=== PATIENT | female | born 1940 | race Caucasian/White ===

== ENCOUNTER → 2018-06-23 10:27 | Outpatient (CLI) | payer MEDICARE, OTHER, SELFPAY ==
[2018-06-23 12:33] LABS: Add Manual Diff / Slide Review NO; Basophils Percent Auto 0.1 % (0-2); Hematocrit 39.8 % (36-46); Hemoglobin 13.7 g/dL (12.0-16.0); Lymphocytes Percent Auto 33.3 % (25-40); Mean Corpuscular HGB Conc 34.4 % (30-36); Monocytes Percent Auto 6.7 % (3-14); Neutrophils Absolute Auto 3900 /uL (3000-5900); Neutrophils Percent Auto 59.9 % (50-75); Platelet Count 193 X10^3/uL (150-400); Red Blood Cell Count 4.28 X10^6/uL (4.0-5.2); White Blood Cell Count 6.5 X10^3/uL (4.5-11.0)
[2018-06-23 13:08] LABS: Alanine Aminotransferase 46 IU/L (9-52); Albumin 4.3 g/dL (3.5-5.0); Albumin Globulin Ratio 1.9 (1.0-2.8); Alkaline Phosphatase 60 U/L (38-126); Aspartate Aminotransferase 38 IU/L (14-36); BUN Creatinine Ratio 28.8 (6-22); Bilirubin Total 0.6 mg/dL (0.2-1.3); Blood Urea Nitrogen 23 mg/dL (7-17); Calcium 10.1 mg/dL (8.4-10.2); Carbon Dioxide 35 mmol/L (22-32); Chloride 96 mmol/L (98-107); Cholesterol 223 mg/dL (140-199); Estimated Glomerular Filt Rate > 60.0 mL/min (>60); Globulin 2.3 g/dL (1.7-4.1); Glucose 87 mg/dL (80-110); HDL Cholesterol 78 mg/dL (40-60); HEMOLYSIS < 15 (0-50); LDL Cholesterol Calculated 119 mg/dL (<100); Potassium 4.5 mmol/L (3.4-5.1); Sodium 139 mmol/L (137-145); Total Protein 6.6 g/dL (6.3-8.2); Triglycerides 132 mg/dL (35-150)
[2018-06-23 13:35] LABS: Thyroid Stimulating Hormone 0.02 uIU/mL (0.47-4.68)
== END ==
PROVIDERS: PCP Family Medicine; Visit Provider Family Medicine
DX: E78.5 Hyperlipidemia, unspecified (principal); I20.1 Angina pectoris with documented spasm; R68.89 Other general symptoms and signs; R60.9 Edema, unspecified; Z00.00 Encounter for general adult medical examination without abnormal findings
CPT/HCPCS: 36415; 80053; 80061; 84443; 85025

== ENCOUNTER → 2018-08-09 12:16 | Outpatient (CLI) | payer MEDICARE, OTHER, SELFPAY ==
--- NOTE | 2018-08-09 | DI.MG.S_ITS ---
BILATERAL DIGITAL SCREENING MAMMOGRAM 3D/2D WITH CAD: 08/09/2018 CLINICAL: Routine screening. Family history of breast cancer. Comparison is made to exams dated: 12/30/2012 mammogram and 02/03/2011 mammogram - [facility]. The tissue of both breasts is predominantly fatty. Current study was also evaluated with a Computer Aided Detection (CAD) system. There is a new asymmetry in the right breast posterior depth upper region seen on the mediolateral oblique view only. No other significant masses, calcifications, or other findings are seen in either breast. IMPRESSION: INCOMPLETE: NEEDS ADDITIONAL IMAGING EVALUATION The new asymmetry in the right breast is indeterminate. Additional views with possible ultrasound are recommended. This exam was interpreted at Station ID: [id number]. NOTE: For mammograms, a report in lay terms will be sent to the patient. Approximately 15% of breast malignancies will not be visualized mammographically. In the management of a palpable breast mass, a negative mammogram must not discourage biopsy of a clinically suspicious lesion. Electronically Signed By: Power Diaz M.D. ecl/:08/09/2018 23:16:44 letter sent: Additional Imaging Needed ACR BI-RADS Category 0: Incomplete 3340F
== END ==
PROVIDERS: PCP Family Medicine; Visit Provider Family Medicine
DX: Z12.31 Encounter for screening mammogram for malignant neoplasm of breast (principal); M85.851 Other specified disorders of bone density and structure, right thigh; Z80.3 Family history of malignant neoplasm of breast; Z78.0 Asymptomatic menopausal state
CPT/HCPCS: 77063; 77067; 77080

== ENCOUNTER → 2018-09-01 14:25 | Outpatient (CLI) | payer MEDICARE, OTHER, SELFPAY ==
--- NOTE | 2018-09-01 | DI.MG.S_ITS ---
UNILATERAL RIGHT DIGITAL DIAGNOSTIC MAMMOGRAM 3D/2D WITH ADDITIONAL VIEWS: 09/01/2018 CLINICAL: Additional evaluation requested from prior study. Comparison is made to exams dated: 08/09/2018 mammogram, 12/30/2012 mammogram, and 02/03/2011 mammogram - [facility]. There are scattered fibroglandular elements in right breast. There is 0.8 cm oval equal density asymmetry with an indistinct margin in the right breast at 9 o'clock posterior depth. No other significant masses or calcifications are seen in the breast. IMPRESSION: INCOMPLETE: NEEDS ADDITIONAL IMAGING EVALUATION The 0.8 cm oval equal density asymmetry in the right breast is indeterminate. An ultrasound is recommended. This exam was interpreted at Station ID: [id number]. NOTE: For mammograms, a report in lay terms will be sent to the patient. Approximately 15% of breast malignancies will not be visualized mammographically. In the management of a palpable breast mass, a negative mammogram must not discourage biopsy of a clinically suspicious lesion. Electronically Signed By: Carlos scott/yesika:09/01/2018 15:40:15 letter sent: Need Ultrasound ACR BI-RADS Category 0: Incomplete 3340F
--- NOTE | 2018-09-01 | DI.US.S_ITS ---
LIMITED ULTRASOUND OF RIGHT BREAST: 09/01/2018 CLINICAL: Patient returns for additional imaging over a suspected mass in the right breast. Comparison is made to exams dated: 09/01/2018 mammogram, 08/09/2018 mammogram, and 12/30/2012 mammogram - [facility]. Color flow and real-time ultrasound of the right breast 9 o'clock region were performed on the areas of interest. There is a benign 0.5 cm x 0.4 cm x 0.8 cm oval normal lymph node with a circumscribed margin in the right breast at 9 o'clock. This oval normal lymph node is of mixed echogenicity with fatty hilum. This correlates with mammography findings. Color flow imaging demonstrates that there is no increase in vascularity. No abnormalities were seen sonographically in the right breast. IMPRESSION: BENIGN There is no sonographic evidence of malignancy. The 0.5 cm x 0.4 cm x 0.8 cm oval normal lymph node in the right breast is consistent with a lymph node and is benign. A 1 year screening mammogram is recommended.(09/02/2019) This exam was interpreted at Station ID: [id number]. Electronically Signed By: Carlos scott/yesika:09/01/2018 16:50:27 letter sent: Normal Exam Ultrasound BI-RADS: 2 Benign
== END ==
PROVIDERS: PCP Family Medicine; Visit Provider Family Medicine
DX: R92.8 Other abnormal and inconclusive findings on diagnostic imaging of breast (principal)
CPT/HCPCS: 76642; 77065; G0279

== ENCOUNTER → 2020-05-08 15:31 | Outpatient (CLI) | payer MEDICARE, OTHER, SELFPAY ==
--- NOTE | 2020-05-08 | DI.MRI.S_ITS ---
PROCEDURE: MR LUMBAR SPINE WO CON INDICATIONS: BACKPAIN TECHNIQUE: Noncontrast sagittal T1 spin echo and T2 fast echo, sagittal STIR, axial T1 and T2 fast spin echo through the lumbar spine. In cases with scoliosis, additional coronal T2 fast spin echo may be performed. COMPARISON: None. FINDINGS: Image quality: Diagnostic, with note made of motion artifact. Alignment and Curvature: S-shaped scoliotic curvature is seen. There is minimal to mild retrolisthesis seen at L2-L3 and L3-L4. Bone Marrow: Marrow is of normal overall signal. No acute vertebral body compression fractures. Spinal Cord: Conus medullaris terminates at the L1 level. Visualized cord demonstrates normal signal and size. Paraspinous Soft Tissues: No paravertebral masses. T12-L1: No significant abnormality is seen. L1-L2: The disc height is well-preserved. Loss of disc signal is seen at this level. There is a focal annular fissure seen posteriorly. Mild to moderate disc bulge is seen. Mild bilateral neural foraminal narrowing is seen. Mild to moderate central canal narrowing is seen. L2-L3: The disc height is well-preserved. Loss of disc signal is seen at this level. Moderate disc bulge is seen. There is a focal annular fissure seen posteriorly. Mild facet joint hypertrophy is seen. There is a right-sided perineural cyst seen. At least moderate bilateral neural foraminal narrowing can be seen. Moderate central canal narrowing is seen. L3-L4: Moderate loss of disc height is seen. Loss of disc signal is seen. Moderate disc bulge is seen, which is eccentric to the right. There is moderate right-sided and mild left neural foraminal narrowing seen. On the left, there is a perineural cyst seen. There is at least moderate bilateral neural foraminal narrowing seen, right worse than left. There is a degree of compression seen upon the exiting nerve roots. Moderate central canal narrowing is seen. L4-L5: Severe loss of disc height is seen. There is a degree of vertebral body fusion seen on the right side. Moderate disc bulge is seen. At least moderate facet hypertrophy is seen at this level. There is mild to moderate right-sided and at least moderate left-sided neural foraminal narrowing seen. Mild to moderate central canal narrowing is seen. L5-S1: Mild to moderate loss of disc height is seen on the left side. Mild to moderate disc bulge is seen. Moderate facet joint hypertrophy is seen. There is mild right-sided and moderate to severe left-sided neural foraminal narrowing seen. There is compression seen on the exiting left L5 nerve root. Mild to moderate central canal narrowing is seen. 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 IMPRESSION: S-shaped scoliosis and multiple levels of lumbar spine degenerative changes are seen. There is a degree of vertebral body fusion seen of the right at the L4-L5 level. Moderate to severe left-sided neural foraminal narrowing seen at L5-S1, with associated exiting nerve root compression. Dictated by: Fabian Franklin M.D. on 05/08/2020 at 16:24 Approved by: Fabian Franklin M.D. on 05/08/2020 at 16:31
--- NOTE | 2020-05-08 | DI.MRI.S_ITS ---
PROCEDURE: MR PELVIS WO CON INDICATIONS: Back pain, pelvic pain TECHNIQUE: Noncontrast axial and coronal T1 spin echo and STIR through the lumbosacral plexus region. Optional contrast may be given, followed by axial and coronal T1 spin echo with fat saturation through the sacral plexus. COMPARISON: [facility], MR, MR LUMBAR SPINE WO CON, 05/08/2020, 15:43. FINDINGS: Image quality: Excellent. Lumbosacral plexus: Superior to the piriformis muscles, the pre-plexal structures appear normal, including the lumbosacral trunk and S1 root. Just anterior to the piriformis muscles, the sacral plexus proper demonstrates normal morphology (lumbosacral trunk, S1 to S3 nerve roots). Inferior to the piriformis muscles, the sciatic nerves appear normal. Soft tissues: The piriformis muscles appear symmetric in size. No presacral masses. Rectum appears normal in caliber and wall thickness. No pathologic free pelvic fluid. No visualized adenopathy by size criteria. The L4-L5 right sided intervertebral disc space area has an unusually prominent degree of elevated fluid signal within, and tracking into the immediate adjacent paraspinous musculature. This tracking extends over several centimeters inferiorly, and terminates without an associated fluid collection. This also can be seen on MR LS spine imaging same day.. Bones: Marrow is normal in overall signal. IMPRESSION: 1. Within the pelvis a mass is not found and no impingement on the sacral plexus is identified. 2. At the right aspect of the L4-L5 intervertebral disc space and within the peripheral margin of the L4 and L5 marrow space there is relatively prominent elevated fluid signal, which tracks into the immediate adjacent right-sided paravertebral musculature inferiorly for several centimeters. This may simply reflect sequela of prominent inflammatory phase of degenerative disc disease at that site but asymmetric right-sided discitis/early osteomyelitis should also be considered. Please correlate clinically and consider obtaining sedimentation rate and other laboratory analysis for this patient. Dictated by: Erich Espino M.D. on 05/09/2020 at 9:13 Approved by: Erich Espino M.D. on 05/09/2020 at 9:27
== END ==
PROVIDERS: PCP Student in an Organized Health Care Education/Training Program; Referring Provider Student in an Organized Health Care Education/Training Program; Visit Provider Student in an Organized Health Care Education/Training Program
DX: M54.5 Low back pain (principal); M43.26 Fusion of spine, lumbar region; M47.816 Spondylosis without myelopathy or radiculopathy, lumbar region; M47.817 Spondylosis without myelopathy or radiculopathy, lumbosacral region; M48.07 Spinal stenosis, lumbosacral region; M48.061 Spinal stenosis, lumbar region without neurogenic claudication; M41.86 Other forms of scoliosis, lumbar region
CPT/HCPCS: 72148; 72195

== ENCOUNTER → 2020-05-13 14:04 | Outpatient (CLI) | payer MEDICARE, OTHER, SELFPAY ==
[2020-05-13 15:53] LABS: Add Manual Diff / Slide Review NO; Basophils Absolute Auto 0 /uL (0-100); Eosinophils Absolute Auto 0 /uL (0-450); Hematocrit 38.5 % (36-46); Hemoglobin 13.3 g/dL (12.0-16.0); Lymphocytes Absolute Auto 1800 /uL (1100-4500); Lymphocytes Percent Auto 34.9 % (25-40); Mean Corpuscular HGB Conc 34.5 % (30-36); Mean Corpuscular Hemoglobin 32.1 PG (26-34); Mean Corpuscular Volume 93.1 fL (80-100); Monocytes Absolute Auto 400 /uL (0-900); Monocytes Percent Auto 7.2 % (3-14); Neutrophils Absolute Auto 3100 /uL (1500-7000); Neutrophils Percent Auto 57.9 % (50-75); Platelet Count 169 X10^3/uL (150-400); Red Blood Cell Count 4.13 X10^6/uL (4.0-5.2); Red Cell Distribution Width 14.8 % (11.6-14.8); White Blood Cell Count 5.3 X10^3/uL (4.5-11.0)
[2020-05-13 16:18] LABS: Erythrocyte Sedimentation Rate 13 MM/HR (0-20)
[2020-05-13 16:20] LABS: BUN Creatinine Ratio 40.5 (6-22); Blood Urea Nitrogen 30 mg/dL (7-17); Calcium 10.1 mg/dL (8.4-10.2); Carbon Dioxide 34 mmol/L (22-32); Chloride 97 mmol/L (98-107); Estimated Glomerular Filt Rate > 60.0 mL/min (>60); Glucose 83 mg/dL (80-110); HEMOLYSIS < 15 (0-50); Potassium 4.1 mmol/L (3.4-5.1); Sodium 138 mmol/L (137-145)
[2020-05-13 17:03] LABS: C-Reactive Protein Quant < 0.5 mg/dL (<1.0)
[2020-05-13 17:38] LABS: Hemoglobin A1C% w Est Avg Glu 5.5 % (4.0-6.0)
== END ==
PROVIDERS: PCP Student in an Organized Health Care Education/Training Program; Referring Provider Nurse Practitioner; Visit Provider Nurse Practitioner
DX: I10 Essential (primary) hypertension (principal); R10.2 Pelvic and perineal pain; M54.9 Dorsalgia, unspecified
CPT/HCPCS: 36415; 80048; 83036; 85025; 85651; 86140